=== PATIENT | male | born 1950 ===

== ENCOUNTER 2025-05-26 07:00 | Day surgery (SDC) | payer OTHER ==
[2025-05-19 08:05] LABS: BASO % 0.9 % (0.1-1.2); EOS # 0.62 (0.04-0.54); EOS % 8.8 % (0.7-7.0); LYMPH # 3.08 (1.18-3.74); LYMPH % 43.9 % (19.3-53.1); MEAN PLATELET VOLUME 10.60 fl (9.4-12.4); MONO # 0.66 (0.24-0.82); MONO % 9.4 % (4.7-12.5); NEUT # 2.58 (1.56-6.13); NEUT % 36.9 % (34.0-71.1); RED CELL DISTRIBUTION WIDTH 14.6 % (11.6-14.4)
[2025-05-19 08:24] LABS: URINE APPEARANCE Clear; URINE BILIRRUBIN Negative (NEGATIVE); URINE BLOOD Negative; URINE COLOR Yellow; URINE GLUCOSE Negative (NEGATIVE); URINE KETONE Negative (NEGATIVE); URINE LEUKOCYTE Trace; URINE NITRATE Negative; URINE PROTEIN Negative (NEGATIVE); URINE UROBILINOGEN 0.2 E.U./dl
[2025-05-19 08:33] LABS: URINE BACTERIA 2.3 uL (0.0-1933); URINE CAST 0.14 uL (0.0-1.40); URINE EPITHELIAL CELLS 1.3 uL (0.0-38.8); URINE RBC 0.5 uL (0.0-20.8); URINE WBC 1.6 uL (0.0-23.2)
[2025-05-19 08:47] LABS: INR 1.0
[2025-05-19 09:05] LABS: ALT/SGPT 37.0 U/L (12-78); AST/SGOT 34.0 U/L (15-37); BILIRUBIN TOTAL 0.5 mg/dL (0.3-1.2); BUN CREA RATIO 11.0 (7.0-25.0); CREATININE SERUM 1.41 mg/dL (0.70-1.30); GFR 48.87; GLOBULINA 3.9 G/DL (2.4-3.5); GLUCOSE FASTING 95.0 mg/dL (65-100); OSMOLALITY SERUM 291.0 MOSM/KG (275-295)
[~2025-05-26 07:00] MED LIST: ECOTRIN81 MG PO; FENOFIBRATE50 MG; ONDANSETRON HCL 2 MG/ML VIAL IV ONE; PROTONIX40 MG PO; SIMVASTATIN5 MG; SYNTHROID50 MCG PO; TOPROL XL25 M1 PO
[2025-05-26] MEDS ORDERED: CEFAZOLIN SODIUM 1,000 MG VIAL ONE (07:40)
[2025-05-26] MEDS ORDERED: KETO10TA2 PO (10:14)
[2025-05-26] MEDS ORDERED: MIRALAX17 GM PO (10:14)
[2025-05-26] MEDS ORDERED: TRAMADOL HCL50 MG PO (10:14)
[2025-05-26] MEDS ORDERED: TYLENOL ARTHRI650 MG PO (10:14)
[2025-05-26] MEDS ORDERED: BUPIVACAINE HCL/MPF 0.5% 30ML VIAL ONE (10:22)
[2025-05-26] MEDS ORDERED: ONDANSETRON HCL 2 MG/ML VIAL ONE (14:18)
== END 2025-05-26 17:40 | disposition home or self-care (01) ==
LOC: CIR.AMB 07:00
PROVIDERS: ATTEND Surgery
DX: K40.90 Unilateral inguinal hernia, without obstruction or gangrene, not specified as recurrent (principal)
CPT/HCPCS: 49650; C1781